=== PATIENT | female | born 1995 | race Two or more races ===

== ENCOUNTER 2021-02-15 06:23 | Day surgery (SDC) | payer OTHER ==
[2021-02-15] MEDS ORDERED: ULTRACET PO (08:37)
[2021-02-15] MEDS ORDERED: LEVOFLOXACIN500 MG PO (08:37)
== END 2021-02-15 22:55 | disposition home or self-care (01) ==
LOC: CIR.AMB 06:23 → EDBD 07:15 → CIR.AMB 09:00
PROVIDERS: ATTEND Surgery
DX: L05.91 Pilonidal cyst without abscess (principal); Z20.822 Contact with and (suspected) exposure to COVID-19